=== PATIENT | female | born 1995 | race Caucasian/White ===

== ENCOUNTER 2017-10-31 21:22 | Emergency (ER) | payer OTHER | END 2017-11-01 02:25 | disposition home or self-care (01) | LOC: FTE 21:22 | DX: S89.92XA Unspecified injury of left lower leg, initial encounter (principal); W01.0XXA Fall on same level from slipping, tripping and stumbling without subsequent striking against object, initial encounter; Y92.89 Other specified places as the place of occurrence of the external cause | CPT/HCPCS: 73562; 99283-25 ==